=== PATIENT | male | born 1945 | race Caucasian/White ===

== ENCOUNTER → 2020-10-01 10:54 | Outpatient (BNVA) | payer OTHER, SELFPAY | PROVIDERS: Visit Provider Surgery | DX: Z86.010 Personal history of colon polyps (principal) | CPT/HCPCS: 87635 ==

== ENCOUNTER 2020-10-06 06:58 | Day surgery (SDC) | payer OTHER, SELFPAY ==
[2020-10-04 13:01] VITALS: BMI 27.8
--- NOTE | 2020-10-06 07:07 | ANES.PREANE2 ---
Pre-Anesthetic Assessment Pre-Anesthetic Assessment: Height/Weight: Height 1.8 m Weight 90.718 kg Preop Diagnosis: screening Proposed Procedure: Operation Date: 10/06/20 08:30 Proposed Procedures p Colonoscopy 28634 Z86.010(Not Applicable) - Melvin Hussein MD Familial anesthetic complications: none Was Beta Meeta taken within 24 hours: N/A Was Clonidine taken within 24 hours: N/A Last intake: none Social: Social History: No alcohol and No tobacco Exam: Pre-Anes Outpt Exam: alert, oriented x 3, clear to auscultation bilaterally and regular rate & rhythm Airway: Cervical ROM: WNL MP: 4 Dentition: Full CV/HEM: CV/HEM: CAD (2008 stent s/p cabg) and HTN Metabolic: Metabolic: DM and Hyperlipidemia Anesthetic Plan: ASA status: 3 Anesthesia: MAC Risk of > 500 ml blood loss (7ml/kg in children): No PFSH Anesthesia PFSH: Medical History Colon polyps Family History Denies family history of Anesthesia complication Bleeding disorder Data Anesthesia Cardiac Studies: No Data to Display
[2020-10-06 07:45] VITALS: BP 173/84; PULSE 53; RESP 18; TEMP 36.2; O2SAT 96
[2020-10-06] MEDS: sodium chloride 0.9% 1,000 ML 30 ML IV (07:49)
--- NOTE | 2020-10-06 08:01 | W.PM.OPSUD ---
Surgery/Procedure H&P Update DATE OF PROCEDURE: October 06, 2020 DATE H&P PERFORMED: 09/16/20 H&P UPDATE INFORMATION: I have reviewed H&P completed within last 30 days, I have examined patient prior to procedure and No changes to prior documentation PREOP DIAGNOSIS: History of colon polyps PRIMARY INDICATION FOR PROCEDURE: The same PLANNED PROCEDURE: Operation Date: 10/06/20 08:30 Proposed Procedures p Colonoscopy 23796 Z86.010(Not Applicable) - Melvin Hussein MD
[2020-10-06 08:13] LABS: Glucose Point of Care 122 mg/dL (70-110)
[2020-10-06 08:26] VITALS: BP 113/61; PULSE 61; RESP 16; TEMP 36.1; O2SAT 95
[2020-10-06] MEDS: carvedilol 12.5 mg Tablet PO (08:37)
[2020-10-06 08:50] VITALS: BP 109/74; PULSE 51; RESP 16; O2SAT 97
--- NOTE | 2020-10-06 20:18 | ANE.PACU2 ---
Inpatient post-anesthesia follow up: Airway intact: Yes Vital signs: Temperature 97 F Pulse Rate 51 Respiratory Rate 16 Blood Pressure 109/74 Pulse Oximetry 97 Oxygen Delivery Me thod Room Air Oxygen Flow Rate Fraction of Inspir ed Oxygen Hydration adequate: Yes Nausea and vomiting: No Pain level: 1 Mental status: Baseline
== END 2020-10-06 09:02 | disposition home or self-care (01) ==
PROVIDERS: Visit Provider Surgery
PROC: 0DJD8ZZ Inspection of Lower Intestinal Tract, Via Natural or Artificial Opening Endoscopic (ICD-10-PCS; CPT 45378; principal; 2020-10-06 08:30)
DX: Z12.11 Encounter for screening for malignant neoplasm of colon (principal); Z86.010 Personal history of colon polyps; I25.10 Atherosclerotic heart disease of native coronary artery without angina pectoris; Z95.1 Presence of aortocoronary bypass graft; I10 Essential (primary) hypertension; E11.9 Type 2 diabetes mellitus without complications; Z79.84 Long term (current) use of oral hypoglycemic drugs; E78.5 Hyperlipidemia, unspecified
CPT/HCPCS: 36416; 45378; 82962; 96360; J2704; J3490; J7030

== ENCOUNTER 2021-07-12 22:42 | Emergency (ER) | payer OTHER, MEDICARE, SELFPAY ==
--- NOTE | 2021-07-12 22:47 | ECG_ITS ---
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 Measurements Intervals [place] Rate: 55 P: 68 CO: 180 QRS: -49 QRSD: 146 T: 54 QT: 442 QTc: 424 Interpretive Statements SINUS BRADYCARDIA WITH SINUS ARRHYTHMIA LEFT AXIS DEVIATION [QRS AXIS < -30] RIGHT BUNDLE BRANCH BLOCK [120+ ms QRS DURATION, UPRIGHT V1, 40+ ms S IN I/aVL/V4/V5/V6] POSSIBLE LEFT VENTRICULAR HYPERTROPHY [VOLTAGE CRITERIA PLUS LAE OR QRS WIDENING] No previous ECG available for comparison Electronically Signed On 07-13-2021 0:07:28 QC SCIENTIST by Octavio Ann M.D. [id number]
--- NOTE | 2021-07-12 22:47 | XRR_ITS ---
PROCEDURE INFORMATION: Exam: XR Chest Exam date and time: 07/12/2021 10:47 PM Age: 76 years old Clinical indication: Other: CVA; Prior surgery; Surgery type: Stents, open heart TECHNIQUE: Imaging protocol: XR of the chest. Views: 1 view. COMPARISON: No relevant prior studies available. FINDINGS: Lungs: Unremarkable. No consolidation. Pleural spaces: Unremarkable. No pleural effusion. No pneumothorax. Heart/Mediastinum: Status post CABG Bones/joints: Unremarkable. XR/XR chest 1V portable [id number] IMPRESSION: No acute findings
--- NOTE | 2021-07-12 22:47 | CTR_ITS ---
PROCEDURE INFORMATION: Exam: CT Head Without Contrast Exam date and time: 07/12/2021 10:47 PM Age: 76 years old Clinical indication: Speech disturbance and weakness, extremity; Right; Additional info: Symptoms of acute stroke TECHNIQUE: Imaging protocol: Computed tomography of the head without contrast. Radiation optimization: All CT scans at this facility use at least one of these dose optimization techniques: automated exposure control; mA and/or kV adjustment per patient size (includes targeted exams where dose is matched to clinical indication); or iterative reconstruction. Other technique: STROKE PROTOCOL was implemented. COMPARISON: No relevant prior studies available. RADIATION DOSE METRICS: Total DLP (mGy-cm): 904.47 FINDINGS: Brain: There is no evidence of infarct, b[place]-white matter differentiation is preserved. There is no hemorrhage or extra-axial collection. There is no mass. Cerebral ventricles: No ventriculomegaly. Paranasal sinuses: Visualized sinuses are unremarkable. No fluid levels. Mastoid air cells: Visualized mastoid air cells are well aerated. Bones/joints: Unremarkable. No acute fracture. Soft tissues: Unremarkable. CT/CT head wo con* [id number] IMPRESSION: No intracranial lesion or injury ASSESSMENT: ASPECTS ([place] Stroke Program Early CT Score) is 10.
[2021-07-12 22:50] LABS: Glucose Point of Care 126 mg/dL (70-110)
--- NOTE | 2021-07-12 22:50 | ED_ITS ---
HPI - Neuro Symptoms/Deficit General: Chief Complaint: Neuro Symptoms/Deficit Stated Complaint: possible Stroke Time Seen by Provider: 07/12/21 22:43 Source: patient and family Mode of arrival: ambulatory Limitations: physical limitation History of Present Illness: HPI Narrative: 76-year-old male states that at 2215 he started have confusion with extreme slurred speech. States she has also been leaning to the right and having some weakness. She is concerned he possibly has had a stroke. No history of stroke. Here he has word salad aphasia some right-sided facial droop he is having difficulty walking as well. No recent surgeries patient's not on any blood thinners besides Plavix no history of A. fib Review of Systems General: Reports: ROS unobtainable due to medical condition PFSH ED PFSH: Medical History Colon polyps Family History Denies family history of Anesthesia complication Bleeding disorder NIH stroke score NIHSS: Level Of Consciousness - 1a: 0 Level Of Consciousness Questions - 1b: Neither Correct Level Of Consciousness Commands - 1c: Both Correct Best Gaze - 2: Partial Gaze Palsy Visual Vega - 3: No Visual Loss Facial Palsy - 4: Partial Paralysis Motor Arm Right - 5: No Drift Motor Arm Left - 5: No Drift Motor Leg Right - 6: No Drift Motor Leg Left - 6: No Drift Limb Ataxia - 7: Absent Sensory - 8: Normal Best Language - 9: Severe Aphasia Dysarthia - 10: Severe Dysarthia Extinction And Inattention - 11: 0 Score: Total Score: 9 Physical Exam Const: COMMON NORMALS: healthy appearing; negative for patient oriented x3 GENERAL APPEARANCE: in distress ORIENTATION/CONSCIOUSNESS: not oriented to person, not oriented to place and not oriented to time HENMT: COMMON NORMALS: normocephalic and atraumatic HEAD & SCALP: normocephalic and atraumatic Eye: COMMON NORMALS: Equal, round and reactive pupils present and EOMs intact bilaterally PUPIL: Yes Equal, round and reactive pupils present Neck/C-Spine: COMMON NORMALS: full ROM and supple Chest: COMMONS NORMALS: normal inspection of the chest and normal palpation of entire chest wall Resp: COMMON NORMALS: normal respiratory effort, No retractions, No use of accessory muscles and clear to auscultation bilaterally AUSCULTATION: clear to auscultation bilaterally Cardio: COMMON NORMALS: regular rate, regular rhythm and No murmurs present (Cardio) RATE: regular rate RHYTHM: regular rhythm GI: COMMON NORMALS: Normal to inspection, nondistended, normoactive bowel sounds present, Soft to palpation, non-tender and no masses PALPATION: Yes Soft to palpation Extremity: COMMON NORMALS: normal to inspection and full ROM Neuro: COMMON NORMALS: moves all extremities; negative for patient oriented x3 SENSORIUM/ORIENTATION: No oriented to person, No oriented to place and No oriented to time CRANIAL NERVES: Yes other (moderate right sided facial droop) SPEECH: abnormal speech and expressive aphasia MOTOR EXAM: 5/5 motor strength present throughout Psych: COMMON NORMALS: cooperative Skin: COMMON NORMALS: no rashes or lesions noted and no wounds GENERAL SKIN EXAM: no rashes or lesions noted Course Vital Signs: Vital signs: Vital Signs Temperature 97.9 F 07/12/21 23:03 Pulse Rate 57 L 07/12/21 23:03 Respiratory Rate 14 07/12/21 23:03 Blood Pressure 160/92 07/12/21 23:03 Pulse Oximetry 98 07/12/21 23:03 MDM - Neuro Symptoms/Deficit MDM Narrative: Medical decision making narrative: Patient presents here with likely acute CVA patient had NIH of 9 last known well was 2215 CT head here shows no acute findings initial blood pressure was elevated given him 20 mg of labetalol blood pressure is now 160/92. TPA was started at 2322. I did speak to neurology at [facility] transfer there for higher level of care as patient is possibly a thrombectomy candidate. Would like to transfer by air but they are not flying due to weather patient transferred by ground emergently. Patient's been stable while here. Lab Data: Labs: Lab Results 07/12/21 07/12/21 07/12/21 22:47 22:49 22:49 WBC 12.4 10^3/uL H 10 ^3/uL (4.0-10.0) RBC 4.24 10^6/uL 10^6 /uL (4.1-5.3) Hgb 13.4 g/dL g/dL (11.7-16.6) Hct 39.7 % L % (42.0-52.0) MCV 93.6 fl fl (80-94) MCH 31.6 pg pg (28.0-34.0) MCHC 33.8 g/dL g/dL (30.0-36.0) RDW 12.2 % % (12.1-15.1) Plt Count 260 10^3/cmm 10^3 /cmm (130-400) MPV 9.5 fL fL (7.4-10.4) Neut % (Auto) 51.5 % % Lymph % (Auto) 35.5 % % [place] % (Auto) 8.8 % % Eos % (Auto) 3.4 % % Baso % (Auto) 0.6 % % Neut # (Auto) 6.40 10^3/uL 10^3 /uL (1.8-7.7) Lymph # (Auto) 4.4 10^3/uL 10^3/ uL (0.8-4.8) [place] # (Auto) 1.1 10^3/uL H 10^ 3/uL (0.2-0.9) Eos # (Auto) 0.4 10^3/uL 10^3/ uL (0.0-0.8) Baso # (Auto) 0.1 10^3/uL 10^3/ uL (0.0-0.1) Nucleated RBC % (a uto) 0 % % Nucleated RBCs # 0.0 /100WBC /100W BC PT 14.50 SECONDS SEC ONDS (12.1-14.9) INR 1.10 (0.8-1.2) APTT 26.4 SECONDS SECO NDS (23.9-36.7) Sodium Potassium Chloride Carbon Dioxide Anion Gap BUN Creatinine GFR Calculation Glucose POC Glucose 126 mg/dL H mg/dL (70-110) Calculated Osmolal ity Calcium Total Bilirubin AST ALT Alkaline Phosphata se Total Protein Albumin Globulin 07/12/21 22:49 WBC RBC Hgb Hct MCV MCH MCHC RDW Plt Count MPV Neut % (Auto) Lymph % (Auto) [place] % (Auto) Eos % (Auto) Baso % (Auto) Neut # (Auto) Lymph # (Auto) [place] # (Auto) Eos # (Auto) Baso # (Auto) Nucleated RBC % (a uto) Nucleated RBCs # PT INR APTT Sodium 139 mmol/L mmol/L (136-145) Potassium 4.2 mmol/L mmol/L (3.5-5.1) Chloride 103 mmol/L mmol/L (98-107) Carbon Dioxide 26 mmol/L mmol/L (22-29) Anion Gap 14.2 (5-19) BUN 21 mg/dL mg/dL (8-23) Creatinine 1.1 mg/dL mg/dL (0.7-1.2) GFR Calculation Not Reportable Glucose 125 mg/dL H mg/dL (65-115) POC Glucose Calculated Osmolal ity 292 mOsm/kg mOsm/ kg (285-295) Calcium 9.3 mg/dL mg/dL (8.5-10.5) Total Bilirubin 0.4 mg/dL mg/dL (0.15-1.2) AST 21 U/L U/L (0-40) ALT 22 U/L U/L (0-41) Alkaline Phosphata se 81 IU/L IU/L (40-130) Total Protein 7.0 g/dL g/dL (6.6-8.7) Albumin 4.4 g/dL g/dL (3.5-5.2) Globulin 2.6 g/dL g/dL (1.3-4.6) Imaging Data^: CT Head: Radiologist's impression: [address] [address] [address] Scan Report Signed Patient: Polo García Unit #: [id number] : 1945 Age/Sex: 76 / M ADM Date: 07/12/21 Loc: ER Room/Bed: Attending Dr: Ordering Provider/Ordering MD: Chelsea Coates MD Date of Service: 07/12/21 Procedure(s): CT head wo con* [id number] Accession Number(s): [id number] Report Number: [id number] PROCEDURE INFORMATION: Exam: CT Head Without Contrast Exam date and time: 07/12/2021 10:47 PM Age: 76 years old Clinical indication: Speech disturbance and weakness, extremity; Right; Additional info: Symptoms of acute stroke TECHNIQUE: Imaging protocol: Computed tomography of the head without contrast. Radiation optimization: All CT scans at this facility use at least one of these dose optimization techniques: automated exposure control; mA and/or kV adjustment per patient size (includes targeted exams where dose is matched to clinical indication); or iterative reconstruction. Other technique: STROKE PROTOCOL was implemented. COMPARISON: No relevant prior studies available. RADIATION DOSE METRICS: Total DLP (mGy-cm): 904.47 FINDINGS: Brain: There is no evidence of infarct, boston-white matter differentiation is preserved. There is no hemorrhage or extra-axial collection. There is no mass. Cerebral ventricles: No ventriculomegaly. Paranasal sinuses: Visualized sinuses are unremarkable. No fluid levels. Mastoid air cells: Visualized mastoid air cells are well aerated. Bones/joints: Unremarkable. No acute fracture. Soft tissues: Unremarkable. CT/CT head wo con* [id number] IMPRESSION: No intracranial lesion or injury ASSESSMENT: ASPECTS ([place] Stroke Program Early CT Score) is 10. Dictated By: Yan Alex MD Signed By: Yan Alex MD Signed Date/Time: 07/12/212305 DD/ 46 CXR: Attestation: I personally reviewed and interpreted this imaging study as follows: Radiologist's impression: no acute abnormality EKG Data^: EKG 1: Attestation: I personally reviewed and interpreted this EKG as follows: EKG interpretation date: 07/12/21 EKG interpretation time: 23:01 Interpretation: sinus basim hr [address] or t wave abnormalities qrs 146 qtc 430 Critical Care Time Critical Care Time: Critical Care Time: Yes Total Critical Care Time: 35 Attestation: The high probability of a clinically significant, sudden or life threatening deterioration of the patient's [] system(s) required my full and direct attention, intervention and personal management. The critical care time is as shown. This time is in addition to time spent performing any reported procedures but includes the following: [x] Data and vital sign review and interpretation [x] Patient assessment, examination and intervention [x] Documentation [x] Medication orders and management Discharge Plan Discharge Patient Disposition: Xfer Short-Term Hosp Clinical Impression: Cerebrovascular accident Qualifiers: CVA mechanism: unspecified Qualified Code(s): I63.9 - Cerebral infarction, unspecified Condition: Stable Coding Level of Care Code ED [employer] Nurs[employer] Supervisor for Samara Dugan
[2021-07-12 22:54] LABS: Basophils # 0.1 10^3/uL (0.0-0.1); Basophils % 0.6 %; Eosinophils # 0.4 10^3/uL (0.0-0.8); Eosinophils % 3.4 %; Hematocrit 39.7 % (42.0-52.0); Hemoglobin 13.4 g/dL (11.7-16.6); Lymphocytes # 4.4 10^3/uL (0.8-4.8); Lymphocytes % 35.5 %; Mean Corpuscular HGB Conc 33.8 g/dL (30.0-36.0); Mean Corpuscular Hemoglobin 31.6 pg (28.0-34.0); Mean Corpuscular Volume 93.6 fl (80-94); Mean Platelet Volume 9.5 fL (7.4-10.4); Monocytes # 1.1 10^3/uL (0.2-0.9); Monocytes % 8.8 %; Neutrophils % 51.5 %; Nucleated Red Blood Cells % 0 %; Platelet Count 260 10^3/cmm (130-400); Red Blood Count 4.24 10^6/uL (4.1-5.3); Red Cell Distribution Width 12.2 % (12.1-15.1); White Blood Count 12.4 10^3/uL (4.0-10.0)
[2021-07-12] MEDS: labetalol 5 mg/mL SDV 20mL 10 MG IVP (22:57)
[2021-07-12 23:03] VITALS: BP 160/92; PULSE 57; RESP 14; TEMP 36.6; O2SAT 98; BMI 26.7
[2021-07-12 23:05] LABS: Partial Thromboplastin Time 26.4 SECONDS (23.9-36.7)
[2021-07-12 23:10] LABS: Alanine Aminotransferase 22 U/L (0-41); Albumin Level 4.4 g/dL (3.5-5.2); Alkaline Phosphatase 81 IU/L (40-130); Anion Gap 14.2 (5-19); Aspartate Amino Transferase 21 U/L (0-40); Blood Urea Nitrogen 21 mg/dL (8-23); Calcium 9.3 mg/dL (8.5-10.5); Carbon Dioxide 26 mmol/L (22-29); Chloride 103 mmol/L (98-107); Globulin 2.6 g/dL (1.3-4.6); Glucose 125 mg/dL (65-115); Osmolality Calculated 292 mOsm/kg (285-295); Potassium 4.2 mmol/L (3.5-5.1); Sodium 139 mmol/L (136-145); Total Bilirubin 0.4 mg/dL (0.15-1.2)
--- NOTE | 2021-07-12 23:29 | PC.NURSE ---
TPA initiated @ 2325. 7.8 ml bolus. then 70 mls/hour. wasted 13.9
[2021-07-12 23:32] VITALS: BP 160/75; PULSE 59; RESP 16; O2SAT 95
[2021-07-12 23:57] VITALS: BP 121/49; PULSE 61; RESP 16; O2SAT 95
== END 2021-07-12 23:59 | disposition short-term general hospital (02) ==
PROVIDERS: Emergency Provider Emergency Medicine
DX: I63.9 Cerebral infarction, unspecified (principal)
CPT/HCPCS: 36416; 70450; 71045; 80053; 82962; 85025; 85610; 85730; 93005; 96374; 99285; J3490

== ENCOUNTER 2021-08-17 09:35 | Outpatient (CLI) | payer OTHER, MEDICARE, SELFPAY ==
--- NOTE | 2021-08-17 09:51 | US_ITS ---
WS: [id number] RENAL ULTRASOUND HISTORY: STAGE3 KIDNEY DZ COMPARISON: CT of 01/17/2013 TECHNIQUE: 2-D and color Doppler imaging of the kidney submitted. Right kidney: 11.6 cm x 4.4 cm x 5.6 cm. Increased echogenicity throughout the kidney. Normal size. Cystic mass in the upper pole centered in the pelvis was also described on a prior CT from 2012. Cyst measures 3.4 x 2.0 x 2.9 cm. No solid mas s identified. Left kidney: 11.3 cm x 4.6 cm x 5.4 cm. Normal size kidney. The echogenicity is normal. No hydronephrosis. No mass. Aorta: Normal. Urinary Bladder: Normal distention. US/US renal BI* [id number] IMPRESSION: 1. Chronic medical renal disease RIGHT kidney without atrophy. 2. Long-term stability cyst in the upper pole RIGHT kidney. 3. Normal LEFT kidney.
== END 2021-08-17 09:36 | disposition home or self-care (01) ==
LOC: RAD 09:48
PROVIDERS: Visit Provider Registered Nurse
DX: N18.30 Chronic kidney disease, stage 3 unspecified (principal); Q61.01 Congenital single renal cyst
CPT/HCPCS: 76770

== ENCOUNTER 2021-10-06 06:00 | Outpatient (RCR) | payer MEDICARE, OTHER, SELFPAY | END 2021-10-13 23:59 | disposition home or self-care (01) | LOC: SST 06:00 | PROVIDERS: Referring Provider Family Medicine; Visit Provider Family Medicine | DX: I69.30 Unspecified sequelae of cerebral infarction (principal) | CPT/HCPCS: 92507; 92523 ==

== ENCOUNTER 2021-10-14 06:00 | Outpatient (RCR) | payer MEDICARE, OTHER, SELFPAY | END 2021-11-12 23:59 | disposition home or self-care (01) | LOC: SST 06:00 | PROVIDERS: Referring Provider Family Medicine; Visit Provider Family Medicine | DX: I63.9 Cerebral infarction, unspecified (principal) | CPT/HCPCS: 92507 ==

== ENCOUNTER 2021-12-14 06:00 | Outpatient (RCR) | payer MEDICARE, OTHER, SELFPAY | END 2022-01-12 23:59 | disposition home or self-care (01) | LOC: SST 06:00 | PROVIDERS: Referring Provider Family Medicine; Visit Provider Family Medicine | DX: I69.320 Aphasia following cerebral infarction (principal) | CPT/HCPCS: 92507 ==

== ENCOUNTER 2022-01-13 06:00 | Outpatient (RCR) | payer MEDICARE, OTHER, SELFPAY | END 2022-02-12 23:59 | disposition home or self-care (01) | LOC: SST 06:00 | PROVIDERS: Referring Provider Family Medicine; Visit Provider Family Medicine | DX: I69.30 Unspecified sequelae of cerebral infarction (principal) | CPT/HCPCS: 92507 ==

== ENCOUNTER 2022-02-13 06:00 | Outpatient (RCR) | payer OTHER, SELFPAY | END 2022-03-15 23:59 | disposition home or self-care (01) | LOC: SST 06:00 | PROVIDERS: Visit Provider Family Medicine | DX: I69.328 Other speech and language deficits following cerebral infarction (principal) | CPT/HCPCS: 92507 ==

== ENCOUNTER 2022-03-02 10:39 | Outpatient (CLI) | payer OTHER, SELFPAY ==
--- NOTE | 2022-03-02 10:50 | USCV_ITS ---
Polo García Age: 76 Gender: M : 1945 Exam Date: 03/02/2022 11:45 Ordering Phys: Nereyda Rivas MD Technologist: HILTON Exam Location: [facility] [place] Indication: HX OF CAD/HTN Risk Factors: Previous Vascular Surgery: Right Brachial BP: / Left Brachial BP: / Right Left Velocity (cm/s) Spectral Plaque Velocity (cm/s) Spectral Plaque Syst/Diast Broadening Syst/Diast Broadening 98.70/ 17.90 Prox CCA 112.80/ 21.40 96.30/ 17.90 Mid CCA 84.70 / 14.80 99.40/ 21.00 Distal CCA 76.90 / 19.40 76.90/ 18.60 Prox ICA 75.40 / 15.50 87.30/ 32.00 Mid ICA 73.80 / 17.70 97.90/ 30.30 Distal ICA 79.50 / 23.00 125.70 ECA 96.10 0.98 ICA/CCA 0.71 Vertebral 46.10/ 9.40 cm/s 67.50/ 24.80 cm/s Subclavian 95.50 79.80 CONCLUSIONS Right ICA stenosis <50%. Mild atheromatous plaque right carotid bulb/ICA. Left ICA stenosis <50%. Mild atheromatous plaque left carotid bulb/ICA. Normal antegrade Doppler flow noted in the right vertebral artery. Normal antegrade Doppler flow noted in the left vertebral artery. Elia Pang MD (Electronically Signed) Final Date: 02 March 2022 18:01 S
--- NOTE | 2022-03-02 10:50 | USCV_ITS ---
Polo García Age: 76 Gender: M : 1945 Exam Date: 03/02/2022 11:17 Ordering Phys: Nereyda Rivas MD Technologist: HILTON [place] [facility] [place] Indication: AAA SCREENING HISTORY: Diameter (cm) AP x Transverse x Length Velocity (cm/s) Waveform Prox Aorta: 1.92 x 2.10 x 108.20 Mid Aorta: 1.67 x 1.78 x 106.60 Distal Aorta: 1.54 x 1.74 x 107.40 Right Iliac Prox: 1.11 x 1.45 x 92.50 Left Iliac Prox: 1.22 x 1.01 x 101.60 Stent Prox Landing x x Aneurysmal Sac Max x x Lt Lat Sac Dim Rt Lat Sac Dim Stent Dist Landing x x Right Iliac Stent x x Left Iliac Stent x x Right Renal Art Left Renal Art FINDINGS: CONCLUSIONS No evidence of abdominal aortic or bilateral iliac aneurysm. Mild arteriovascular disease within the abdominal aorta. Elia Pang MD (Electronically Signed) Final Date: 02 March 2022 18:03 S
== END 2022-03-02 10:40 | disposition home or self-care (01) ==
LOC: RAD 10:40
PROVIDERS: Visit Provider Family Medicine
DX: I73.9 Peripheral vascular disease, unspecified (principal); I10 Essential (primary) hypertension; Z86.79 Personal history of other diseases of the circulatory system; I65.23 Occlusion and stenosis of bilateral carotid arteries
CPT/HCPCS: 76706; 93880

== ENCOUNTER 2022-03-16 06:00 | Outpatient (RCR) | payer OTHER, SELFPAY | END 2022-04-14 23:59 | disposition home or self-care (01) | LOC: SST 06:00 | PROVIDERS: Visit Provider Family Medicine | DX: I69.320 Aphasia following cerebral infarction (principal) | CPT/HCPCS: 92507 ==

== ENCOUNTER 2022-04-15 06:00 | Outpatient (RCR) | payer OTHER, SELFPAY | END 2022-05-15 23:59 | disposition home or self-care (01) | LOC: SST 06:00 | PROVIDERS: Visit Provider Family Medicine | DX: I69.320 Aphasia following cerebral infarction (principal) | CPT/HCPCS: 92507 ==

== ENCOUNTER 2022-05-16 06:00 | Outpatient (RCR) | payer OTHER, SELFPAY | END 2022-06-14 23:59 | disposition home or self-care (01) | LOC: SST 06:00 | PROVIDERS: Visit Provider Family Medicine | DX: I69.320 Aphasia following cerebral infarction (principal) | CPT/HCPCS: 92507 ==

== ENCOUNTER 2024-06-09 08:56 | Outpatient (CLI) | payer OTHER, SELFPAY ==
[2024-06-09 09:42] LABS: Basophils % 0.5 %; Eosinophils # 0.3 10^3/uL (0.0-0.8); Eosinophils % 3.1 %; Hematocrit 42.4 % (37-53); Lymphocytes % 24.9 %; Mean Corpuscular HGB Conc 31.6 g/dL (30-55); Mean Corpuscular Hemoglobin 30.5 pg (27-33); Mean Corpuscular Volume 96.4 fl (82-101); Mean Platelet Volume 8.9 fL (7.4-10.4); Monocytes # 0.6 10^3/uL (0.2-0.9); Monocytes % 7.7 %; Neutrophils # 5.04 10^3/uL (1.8-7.7); Neutrophils % 63.5 %; Nucleated Red Blood Cells % 0 %; Platelet Count 225 10^3/cmm (157-399); Red Cell Distribution Width 12.7 % (12.1-15.1); White Blood Count 7.94 10^3/uL (3.29-11.43)
[2024-06-09 10:11] LABS: Albumin Level 4.5 g/dL (3.5-5.2); Anion Gap 10.4 (5-19); Blood Urea Nitrogen 24 mg/dL (8-23); Calcium 9.5 mg/dL (8.5-10.5); Carbon Dioxide 30 mmol/L (22-29); Chloride 103 mmol/L (98-107); Glucose 110 mg/dL (65-115); Phosphorus 3.2 mg/dL (2.5-4.5); Potassium 4.4 mmol/L (3.5-5.1); Sodium 139 mmol/L (136-145)
[2024-06-09 10:12] LABS: Creatinine Urine, Random 157 mg/dL (39-259); Microalbum Creatinine Ratio Ur 13 mg/dL (0-20); Microalbumin Random Urine 2 ug/dL (0-20)
[2024-06-09 11:32] LABS: Calcium 9.6 mg/dL (8.5-10.5)
[2024-06-09 11:38] LABS: Parathyroid Hormone 36.3 pg/mL (15-65)
== END 2024-06-09 08:57 | disposition home or self-care (01) ==
LOC: LAB 09:01
PROVIDERS: Visit Provider Registered Nurse
DX: N18.31 Chronic kidney disease, stage 3a (principal)
CPT/HCPCS: 36415; 80069; 82044; 82310; 83970; 85025

== ENCOUNTER 2024-12-15 13:49 | Outpatient (CLI) | payer OTHER, SELFPAY ==
[2024-12-15 14:48] LABS: Basophils % 0.4 %; Eosinophils # 0.4 10^3/uL (0.0-0.8); Eosinophils % 4.7 %; Lymphocytes # 2.2 10^3/uL (0.8-4.8); Lymphocytes % 29.4 %; Mean Corpuscular Hemoglobin 32.1 pg (27-33); Mean Corpuscular Volume 97.4 fl (82-101); Mean Platelet Volume 9.2 fL (7.4-10.4); Monocytes # 0.6 10^3/uL (0.2-0.9); Monocytes % 8.1 %; Neutrophils # 4.22 10^3/uL (1.8-7.7); Neutrophils % 57.1 %; Nucleated Red Blood Cells % 0 %; Platelet Count 201 10^3/cmm (157-399); Red Cell Distribution Width 12.1 % (12.1-15.1); White Blood Count 7.39 10^3/uL (3.29-11.43)
[2024-12-15 15:06] LABS: Creatinine Urine, Random 102 mg/dL (39-259); Microalbum Creatinine Ratio Ur 10 mg/dL (0-20); Microalbumin Random Urine 1 ug/dL (0-20)
[2024-12-15 15:10] LABS: Albumin Level 3.9 g/dL (3.5-5.2); Blood Urea Nitrogen 31 mg/dL (8-23); Carbon Dioxide 23 mmol/L (22-29); Chloride 107 mmol/L (98-107); Glucose 105 mg/dL (65-115); Phosphorus 3.4 mg/dL (2.5-4.5); Sodium 141 mmol/L (136-145)
[2024-12-15 15:12] LABS: Parathyroid Hormone 31.8 pg/mL (15-65)
[2024-12-15 15:22] LABS: 25 Hydroxy Vitamin D 38 ng/mL (30-100)
== END 2024-12-15 13:50 | disposition home or self-care (01) ==
PROVIDERS: PCP Family Medicine; Visit Provider Internal Medicine
DX: N18.31 Chronic kidney disease, stage 3a (principal); E55.9 Vitamin D deficiency, unspecified
CPT/HCPCS: 36415; 80069; 82044; 82306; 82310; 83970; 85025

== ENCOUNTER 2025-02-16 15:22 | Outpatient (CLI) | payer OTHER, SELFPAY ==
--- NOTE | 2025-02-16 15:31 | USCV_ITS ---
Polo García Age: 79 Gender: M : 1945 Exam Date: 02/16/2025 15:41 Ordering Phys: Nereyda Rivas MD Technologist: USR [place]am [place] [facility] [place] Indication: stenosis Risk Factors: Previous Vascular Surgery: Right Brachial BP: / Left Brachial BP: / Right Left Velocity (cm/s) Spectral Plaque Velocity (cm/s) Spectral Plaque Syst/Diast Broadening Syst/Diast Broadening 132.00/23.10 Prox CCA 101.50/ 18.30 118.60/20.90 Mid CCA 122.80/ 20.80 112.10/18.70 Distal CCA 110.20/ 24.70 73.70/ 14.90 Prox ICA 73.10 / 19.90 98.90/ 28.50 Mid ICA 57.20 / 15.80 98.90/ 30.00 Distal ICA 67.10 / 15.60 127.20 ECA 152.70 0.70 ICA/CCA 0.70 Antegrade Vertebral Antegrade 58.60/ 12.60 cm/s 57.90/ 18.20 cm/s Tri Subclavian Tri 110.4 108.3 0 0 FINDINGS Comparison:. 03/02/22 No significant elevation of systolic or diastolic velocities. Waveforms are normal. Mild plaque in the bifurcations. Antegrade vertebral arteries. CONCLUSIONS No interval change in stenosis since prior exam. Bilateral ICA stenosis less than 50%. Dr. Leslye Martinez DO (Electronically Signed) Final Date: 16 February 2025 16:02 S
== END 2025-02-16 15:23 | disposition home or self-care (01) ==
LOC: RAD 15:24
PROVIDERS: PCP Family Medicine; Visit Provider Family Medicine
DX: I65.23 Occlusion and stenosis of bilateral carotid arteries (principal)
CPT/HCPCS: 93880

== ENCOUNTER 2025-06-23 08:53 | Outpatient (CLI) | payer OTHER, SELFPAY ==
[2025-06-23 09:57] LABS: Hematocrit 40.0 % (37-53); Hemoglobin 13.20 g/dL (11.27-16.99); Mean Corpuscular HGB Conc 33.0 g/dL (30-55); Mean Corpuscular Hemoglobin 31.4 pg (27-33); Mean Corpuscular Volume 95.2 fl (82-101); Nucleated Red Blood Cells % 0 %; Platelet Count 193 10^3/cmm (157-399); Red Blood Count 4.20 10^6/uL (3.85-5.65); White Blood Count 8.36 10^3/uL (3.29-11.43)
[2025-06-23 10:22] LABS: Calcium 9.4 mg/dL (8.5-10.5)
[2025-06-23 10:24] LABS: Albumin Level 4.2 g/dL (3.5-5.2); Anion Gap 14.5 (5-19); Blood Urea Nitrogen 30 mg/dL (8-23); Calcium 9.4 mg/dL (8.5-10.5); Carbon Dioxide 26 mmol/L (22-29); Chloride 104 mmol/L (98-107); Glucose 110 mg/dL (65-115); Potassium 4.5 mmol/L (3.5-5.1); Sodium 140 mmol/L (136-145)
[2025-06-23 10:29] LABS: Creatinine Urine, Random 121 mg/dL (39-259); Microalbum Creatinine Ratio Ur 8 mg/dL (0-20)
== END 2025-06-23 08:54 | disposition home or self-care (01) ==
PROVIDERS: PCP Family Medicine; Visit Provider Registered Nurse
DX: E55.9 Vitamin D deficiency, unspecified (principal); I12.9 Hypertensive chronic kidney disease with stage 1 through stage 4 chronic kidney disease, or unspecified chronic kidney disease; N18.32 Chronic kidney disease, stage 3b
CPT/HCPCS: 36415; 80069; 82044; 82306; 82310; 83970; 85025